=== PATIENT | male | born 2000 | race Caucasian/White ===

== ENCOUNTER 2020-05-26 16:41 | Emergency (ER) | payer MEDICAID ==
[~2020-05-26] VITALS: Ht 167.6 cm; Wt 100.0 kg
[2020-05-26] MEDS ORDERED: BACITRACIN ZINC OINT UDPKT TOP ONE (18:30)
[2020-05-26] MEDS ORDERED: LIDOCAINE 1%/EPI 1:100,000 10 ML VIAL IJ ONE (18:30)
[2020-05-26 19:31] LABS: BASOPHILS % 0.2 % (0.0-2.0); EOSINOPHILS % 0.1 % (0.0-5.0); HEMATOCRIT. 44.7 % (42.0-52.0); HEMOGLOBIN. 14.8 g/dL (14.0-18.0); LYMPHOCYTES % 7.8 % (20.0-50.0); MEAN CORPUSCULAR HEMOGLOBIN 28.4 pg (28.0-32.0); MEAN CORPUSCULAR VOLUME 85.4 fL (80.0-94.0); MEAN PLATELET VOLUME 7.6 fl (7.4-10.4); MONOCYTES % 3.4 % (2.0-8.0); NEUTROPHILS % 88.5 % (40.0-76.0); PLATELET 313 x1000/uL (130-400); RED BLOOD CELL COUNT 5.23 mill/uL (4.7-6.1); RED CELL DISTRIBUTION WIDTH 14.7 % (11.6-14.6)
[2020-05-26 19:37] LABS: CHLORIDE 106 mEq/L (98-107)
[2020-05-26 19:42] LABS: ETHANOL BLOOD < 10 mg/dL
[2020-05-27 13:38] LABS: CLARITY URINE CLEAR (CLEAR); COLOR URINE YELLOW (YELLOW); KETONES URINE 1+ (NEGATIVE); LEUKOCYTE ESTERASE URINE NEGATIVE (NEGATIVE); NITRITE URINE NEGATIVE (NEGATIVE); OCCULT BLOOD URINE NEGATIVE (NEGATIVE); PROTEIN URINE NEGATIVE (NEGATIVE); SPECIFIC GRAVITY URINE 1.014 (1.005-1.030)
[2020-05-27 14:18] LABS: CANNABINOID URINE SCREEN NEGATIVE (NEGATIVE)
[2020-05-27 14:19] LABS: *AMPHETAMINES SCREEN URINE NEGATIVE (NEGATIVE); *BARBITURATES SCREEN URINE NEGATIVE (NEGATIVE); *BENZODIAZEPINES SCREEN URINE NEGATIVE (NEGATIVE); METHADONE URINE SCREEN NEGATIVE (NEGATIVE); OPIATES URINE SCREEN NEGATIVE (NEGATIVE); PHENCYCLIDINE URINE SCREEN NEGATIVE (NEGATIVE)
[2020-05-27 14:21] LABS: *COCAINE SCREEN URINE NEGATIVE (NEGATIVE)
[2020-05-27 16:20] VITALS: BP 117/80
== END 2020-05-27 16:19 | disposition home or self-care (01) ==
LOC: ER 16:41
DX: S51.812A Laceration without foreign body of left forearm, initial encounter (principal); X78.9XXA Intentional self-harm by unspecified sharp object, initial encounter; D72.829 Elevated white blood cell count, unspecified; Z11.59 Encounter for screening for other viral diseases; Y93.89 Activity, other specified; Y92.89 Other specified places as the place of occurrence of the external cause
CPT/HCPCS: 12002; 36415; 80053; 80305; 80307; 80320; 80329; 81003; 85025; 87635; 93005; 99285; J3490; G0480

== ENCOUNTER 2021-12-07 11:45 | Emergency (ER) | payer OTHER ==
[~2021-12-07] VITALS: Ht 172.7 cm; Wt 91.0 kg
[2021-12-07 15:24] LABS: BASOPHILS % 0.5 % (0.0-2.0); EOSINOPHILS % 0.4 % (0.0-5.0); HEMATOCRIT. 45.3 % (42.0-52.0); LYMPHOCYTES % 15.1 % (20.0-50.0); MEAN CORPUSCULAR VOLUME 87.6 fL (80.0-94.0); MEAN PLATELET VOLUME 7.9 fl (7.4-10.4); MONOCYTES % 5.6 % (2.0-8.0); NEUTROPHILS % 78.4 % (40.0-76.0); PLATELET 349 x1000/uL (130-400); RED BLOOD CELL COUNT 5.17 mill/uL (4.7-6.1); RED CELL DISTRIBUTION WIDTH 14.5 % (11.6-14.6)
[2021-12-07 15:28] LABS: CHLORIDE 107 mEq/L (98-107)
[2021-12-07] MEDS ORDERED: KETOROLAC 15MG/ML VIAL IM NR (17:15)
[2021-12-07] MEDS ORDERED: METOCLOPRAMIDE HCL 5MG TABLET PO NR (17:15)
[2021-12-07 18:00] VITALS: BP 148/80
[2021-12-08] MEDS ORDERED: NAPR-681 PO (17:26)
== END 2021-12-07 18:30 | disposition home or self-care (01) ==
LOC: ER 11:45
DX: R51.9 Headache, unspecified (principal)
CPT/HCPCS: 36415; 70450; 80053; 85025; 96372; 99284; J1885; J8597

== ENCOUNTER 2021-12-08 15:40 | Emergency (ER) | payer OTHER ==
[~2021-12-08] VITALS: Ht 172.7 cm; Wt 91.0 kg
[2021-12-08 16:09] VITALS: BP 164/94
[2021-12-08] MEDS ORDERED: KETOROLAC 30MG/ML VIAL IM STA (16:09)
[2021-12-08] MEDS ORDERED: METOCLOPRAMIDE HCL 10MG/2ML VIAL IM ONE (16:15)
[2021-12-08] MEDS ORDERED: NAPR-681 PO (17:26)
== END 2021-12-08 18:07 | disposition home or self-care (01) ==
LOC: ER 15:40
DX: R51.9 Headache, unspecified (principal); F41.9 Anxiety disorder, unspecified; R03.0 Elevated blood-pressure reading, without diagnosis of hypertension
CPT/HCPCS: 96372; 99284; J1885; J2765

== ENCOUNTER 2023-09-08 10:46 | Emergency (ER) | payer MEDICAID, OTHER ==
[~2023-09-08] VITALS: Ht 172.7 cm; Wt 91.0 kg
[~2023-09-08 10:46] MED LIST: NAPR-681 PO
[2023-09-08 11:04] VITALS: O2SAT 100
[2023-09-08] MEDS ORDERED: BACITRACIN ZINC OINT UDPKT TOP ONE (12:45)
[2023-09-08] MEDS ORDERED: LIDOCAINE HCL/EPINEPHRINE 1%-EPI 1:100,000 20 ML VIAL INFIL ONE (12:45)
[2023-09-08] MEDS ORDERED: CEPH500C2 MT (13:45)
[2023-09-08 14:03] VITALS: BP 137/64; PULSE 99; RESP 16; TEMP 98.3
== END 2023-09-08 14:04 | disposition home or self-care (01) ==
LOC: ER 10:46
DX: S01.111A Laceration without foreign body of right eyelid and periocular area, initial encounter (principal); I10 Essential (primary) hypertension; W18.30XA Fall on same level, unspecified, initial encounter; Y93.89 Activity, other specified; Y92.89 Other specified places as the place of occurrence of the external cause; Y99.8 Other external cause status
CPT/HCPCS: 12013; 99283; Z7610; J3490